=== PATIENT | female | born 1940 | race Two or more races ===

== ENCOUNTER 2020-11-06 09:12 | Emergency (ER) | payer OTHER, MEDICARE ==
[~2020-11-06] VITALS: Ht 154.9 cm; Wt 59.4 kg
[2020-11-06 10:00] LABS: Basophils # (auto) 0 10 ^3/uL (0-0.2); Basophils % (auto) 0.4 % (0.0-2.0); Eosinophils # (auto) 0 10 ^3/uL (0-0.8); Hematocrit 35.6 % (36.0-46.0); Hemoglobin 12.3 g/dL (12.2-16.2); Lymphocytes # (auto) 0.5 10 ^3/uL (0.4-5.4); Lymphocytes % (auto) 11.6 % (10.0-50.0); Mean Corpuscular Hemoglobin 30.3 pg (28.0-32.0); Mean Corpuscular Hgb Conc. 34.6 g/dL (32.0-36.0); Mean Corpuscular Volume 87.6 fL (80.0-100.0); Monocytes # (auto) 0.3 10 ^3/uL (0-1.3); Monocytes % (auto) 7.4 % (0.0-12.0); Neutrophils # (auto) 3.5 10 ^3/uL (1.6-8.6); Neutrophils % (auto) 80.6 % (37.0-80.0); Nucleated Red Blood Cells % 0.5 %; Red Blood Cells 4.06 10^6/uL (4.0-5.20); Red Cell Distribution Width 13.9 % (11.8-14.3); White Blood Cell 4.4 10^3/uL (4.4-10.8)
[2020-11-06 10:26] LABS: Albumin 3.8 g/dL (3.4-5.0); Anion Gap 8 (5-15); Blood Urea Nitrogen 29 mg/dL (7-18); Calcium 9.6 mg/dL (8.5-10.1); Carbon Dioxide 25 mmol/L (21-32); Chloride 107 mmol/L (98-107); Glucose 104 mg/dL (74-106); Magnesium 2.6 mg/dL (1.6-2.6); Potassium 3.9 mmol/L (3.5-5.1); Sodium 140 mmol/L (136-145)
[2020-11-06 10:32] LABS: Alanine Aminotransferase 25 U/L (13-56); Alkaline Phosphatase 56 U/L (45-117); Aspartate Aminotransferase 10 U/L (15-37); BUN/Creatinine Ratio 27.4; Bilirubin, Total 0.8 mg/dL (0.2-1.0); GFR African American 64 mL/min; GFR Non-African American 53 mL/min; Total Protein 7.9 g/dL (6.4-8.2)
[2020-11-06] MEDS ORDERED: MECLIZINE HCL 25 MG TAB PO ONE (11:15)
[2020-11-06] MEDS: FUROSEMIDE 20 MG/2 ML VIAL IV ONE ×2 (11:15→13:13)
[2020-11-06 12:00] LABS: Urine Bacteria FEW /hpf (None Seen); Urine Blood Negative /uL (Negative); Urine Specific Gravity 1.009 (1.001-1.035); Urine WBC 2 /hpf (0 - 5)
[2020-11-06] MEDS ORDERED: FUROSEMIDE 20 MG TAB ONE (13:09)
[2020-11-06 15:52] VITALS: BP 153/88
== END 2020-11-06 15:54 | disposition home or self-care (01) ==
LOC: ER 09:12
DX: R42 Dizziness and giddiness (principal); R53.1 Weakness; I25.2 Old myocardial infarction; I10 Essential (primary) hypertension; Z90.49 Acquired absence of other specified parts of digestive tract
CPT/HCPCS: 36415; 70450; 71045; 80053; 81001; 83735; 84484; 85025; 93005; 99285; J8597

== ENCOUNTER 2020-12-11 21:37 | Inpatient (IN) | payer MEDICARE, OTHER ==
[~2020-12-11] VITALS: Ht 157.5 cm; Wt 63.6 kg
[2020-12-11 22:29] LABS: Basophils # (auto) 0 10 ^3/uL (0-0.2); Basophils % (auto) 0.2 % (0.0-2.0); Eosinophils # (auto) 0 10 ^3/uL (0-0.8); Hemoglobin 12.1 g/dL (12.2-16.2); Lymphocytes # (auto) 0.6 10 ^3/uL (0.4-5.4); Lymphocytes % (auto) 5.7 % (10.0-50.0); Mean Corpuscular Hemoglobin 30.3 pg (28.0-32.0); Mean Corpuscular Hgb Conc. 34.7 g/dL (32.0-36.0); Mean Corpuscular Volume 87.3 fL (80.0-100.0); Monocytes # (auto) 0.5 10 ^3/uL (0-1.3); Monocytes % (auto) 4.8 % (0.0-12.0); Neutrophils # (auto) 10.1 10 ^3/uL (1.6-8.6); Neutrophils % (auto) 89.3 % (37.0-80.0); Red Cell Distribution Width 13.5 % (11.8-14.3); White Blood Cell 11.3 10^3/uL (4.4-10.8)
[2020-12-11 22:48] LABS: Albumin 3.6 g/dL (3.4-5.0); Anion Gap 9 (5-15); Blood Urea Nitrogen 33 mg/dL (7-18); Calcium 8.9 mg/dL (8.5-10.1); Carbon Dioxide 22 mmol/L (21-32); Chloride 96 mmol/L (98-107); Glucose 144 mg/dL (74-106); Potassium 3.7 mmol/L (3.5-5.1); Sodium 127 mmol/L (136-145)
[2020-12-11 22:55] LABS: Alanine Aminotransferase 36 U/L (13-56); Alkaline Phosphatase 65 U/L (45-117); Aspartate Aminotransferase 22 U/L (15-37); BUN/Creatinine Ratio 28.2; GFR African American 58 mL/min; GFR Non-African American 48 mL/min; Total Protein 7.6 g/dL (6.4-8.2)
[2020-12-12] MEDS ORDERED: SODIUM CHLORIDE 0.9% 1,000 ML IV ONE (03:30)
[2020-12-12 05:28] LABS: Sodium Urine 35 mmol/L (40-220)
[2020-12-12 05:38] LABS: Creatinine, Urine 10 mg/dL (30.0-125.0)
[2020-12-12] MEDS ORDERED: POTASSIUM CHL 20 Meq TABLET PO ONE ×2 (06:15→06:30)
[2020-12-12] MEDS ORDERED: ONDANSETRON HCL 4 MG/2 ML VIAL IV PRN (06:15)
[2020-12-12] MEDS ORDERED: ACETAMINOPHEN 325 MG TAB PO PRN (06:15)
[2020-12-12] MEDS ORDERED: TEMAZEPAM 15 MG CAP PO PRN (06:15)
[2020-12-12] MEDS ORDERED: PANTOPRAZOLE 40 MG TAB PO SCH (10:00)
[2020-12-12] MEDS ORDERED: FUROSEMIDE 20 MG TAB PO SCH (10:00)
[2020-12-12] MEDS: RASAGILINE 1 MG PO SCH (10:00)
[2020-12-12] MEDS: PROPRANOLOL HCL 20 MG TAB PO SCH ×2 (11:23→22:00)
[2020-12-12] MEDS: dilTIAZem 120MG ER CAP PO SCH (11:24)
[2020-12-12] MEDS: LISINOPRIL 5 MG TAB PO SCH (11:24)
[2020-12-12] MEDS ORDERED: POM PO ×2 (11:54)
[2020-12-12] MEDS ORDERED: MEMA28CA15 PO ×2 (11:54)
[2020-12-12] MEDS ORDERED: LISI-706 PO ×2 (11:54)
[2020-12-12] MEDS ORDERED: DILT-29 PO ×2 (11:54)
[2020-12-12] MEDS ORDERED: CHOL20007 OR ×2 (11:54)
[2020-12-12] MEDS ORDERED: AMAN100T PO ×2 (11:54)
[2020-12-12] MEDS ORDERED: TETR1TAB2 PO ×2 (11:54)
[2020-12-12] MEDS ORDERED: POM IJ ×2 (11:54)
[2020-12-12] MEDS ORDERED: ROPI1TAB4 PO ×2 (11:54)
[2020-12-12] MEDS ORDERED: CHOL100046 PO ×2 (11:54)
[2020-12-12] MEDS ORDERED: OMEP20TA PO ×2 (11:54)
[2020-12-12] MEDS ORDERED: RASA1TAB4 PO ×4 (11:54)
[2020-12-12] MEDS ORDERED: TRAZ-181 PO ×2 (11:54)
[2020-12-12] MEDS ORDERED: QUET200T4 PO ×2 (11:54)
[2020-12-12 12:38] VITALS: BP 150/92
[2020-12-12 13:00] VITALS: BP 150/92
[2020-12-12] MEDS: AMANTADINE HCL 100 MG CAP PO SCH ×2 (14:02→23:13)
[2020-12-12] MEDS ORDERED: PNEUMOCOCCAL VACC POLYS 25 MCG/0.5 ML VIAL IM ONE (14:30)
[2020-12-12] MEDS ORDERED: INFLUENZA QUAD 2021-2022 0.5 ML SYRG IM ONE (14:30)
[2020-12-12 17:00] VITALS: BP 112/62
[2020-12-12] MEDS ORDERED: MEMANTINE 28 MG PO SCH (22:00)
[2020-12-12 22:25] VITALS: BP 106/74
[2020-12-12] MEDS: ATORVASTATIN 20 MG TAB PO SCH (23:12)
[2020-12-12] MEDS: QUEtiapine FUMARATE 100 MG TAB PO SCH (23:13)
[2020-12-13 05:25] VITALS: BP 100/45
[2020-12-13 06:58] LABS: Basophils # (auto) 0 10 ^3/uL (0-0.2); Basophils % (auto) 0.1 % (0.0-2.0); Eosinophils # (auto) 0 10 ^3/uL (0-0.8); Hematocrit 33.9 % (36.0-46.0); Hemoglobin 11.7 g/dL (12.2-16.2); Lymphocytes # (auto) 0.8 10 ^3/uL (0.4-5.4); Mean Corpuscular Hemoglobin 30.7 pg (28.0-32.0); Mean Corpuscular Hgb Conc. 34.5 g/dL (32.0-36.0); Mean Corpuscular Volume 88.9 fL (80.0-100.0); Monocytes # (auto) 0.6 10 ^3/uL (0-1.3); Monocytes % (auto) 8.4 % (0.0-12.0); Neutrophils # (auto) 5.6 10 ^3/uL (1.6-8.6); Neutrophils % (auto) 80.5 % (37.0-80.0); Nucleated Red Blood Cells % 0.1 %; Red Blood Cells 3.81 10^6/uL (4.0-5.20); Red Cell Distribution Width 13.8 % (11.8-14.3)
[2020-12-13 07:13] LABS: BUN/Creatinine Ratio 24.8; Calcium 9.2 mg/dL (8.5-10.1); Potassium 3.5 mmol/L (3.5-5.1)
[2020-12-13 09:00] VITALS: BP 88/50
[2020-12-13] MEDS: LISINOPRIL 5 MG TAB PO SCH (10:00)
[2020-12-13] MEDS: RASAGILINE 1 MG PO SCH (10:00)
[2020-12-13] MEDS: PROPRANOLOL HCL 20 MG TAB PO SCH ×2 (10:00→22:15)
[2020-12-13] MEDS: dilTIAZem 120MG ER CAP PO SCH (10:00)
[2020-12-13] MEDS: AMANTADINE HCL 100 MG CAP PO SCH ×2 (10:06→22:14)
[2020-12-13 13:00] VITALS: BP 82/44
[2020-12-13 17:00] VITALS: BP 108/64
[2020-12-13 22:00] VITALS: BP 124/73
[2020-12-13] MEDS ORDERED: MEMANTINE 28 MG PO SCH (22:00)
[2020-12-13] MEDS: QUEtiapine FUMARATE 100 MG TAB PO SCH (22:14)
[2020-12-13] MEDS: ATORVASTATIN 20 MG TAB PO SCH (22:16)
[2020-12-14 04:47] VITALS: BP 92/54
[2020-12-14 08:35] VITALS: BP 92/90
[2020-12-14] MEDS ORDERED: SODIUM CHLORIDE 0.9% 1,000 ML IV SCH (09:30)
[2020-12-14] MEDS: AMANTADINE HCL 100 MG CAP PO SCH (10:00)
[2020-12-14] MEDS: RASAGILINE 1 MG PO SCH (10:00)
[2020-12-14] MEDS: dilTIAZem 120MG ER CAP PO SCH (10:00)
[2020-12-14] MEDS: PROPRANOLOL HCL 20 MG TAB PO SCH (10:00)
[2020-12-14 13:00] VITALS: BP 111/67
[2020-12-14] MEDS ORDERED: INFLUENZA QUAD 2021-2022 0.5 ML SYRG IM ONE (14:35)
== END 2020-12-14 15:40 | disposition home health service (06) | DRG 92 ==
LOC: ER 21:40 → OVERFLOW 12-12 06:10 → CENTRAL 12-12 10:00
PROVIDERS: ADMIT Nurse Practitioner; ATTEND Internal Medicine
DX: G25.0 Essential tremor (principal); N17.9 Acute kidney failure, unspecified; E87.1 Hypo-osmolality and hyponatremia; I95.9 Hypotension, unspecified; R06.02 Shortness of breath; D72.829 Elevated white blood cell count, unspecified; F02.80 Dementia in other diseases classified elsewhere, unspecified severity, without behavioral disturbance, psychotic disturbance, mood disturbance, and anxiety; I10 Essential (primary) hypertension; F51.04 Psychophysiologic insomnia; Z20.822 Contact with and (suspected) exposure to COVID-19; G30.9 Alzheimer's disease, unspecified; Z82.49 Family history of ischemic heart disease and other diseases of the circulatory system; Z90.49 Acquired absence of other specified parts of digestive tract
CPT/HCPCS: 36415; 70450; 71045; 76700; 78582; 80048; 80051; 80053; 82570; 83880; 83935; 84300; 84484; 85025; 85379; 87081; 87426; 90686; 93005; 96360; 97116; 97530; G0378

== ENCOUNTER 2020-12-16 23:35 | Emergency (ER) | payer OTHER ==
[~2020-12-16] VITALS: Ht 157.5 cm; Wt 65.8 kg
[~2020-12-16 23:35] MED LIST: AMAN100T PO; CHOL100046 PO; CHOL20007 OR; DILT-29 PO; LISI-706 PO; MEMA28CA15 PO; OMEP20TA PO; POM IJ; POM PO; QUET200T4 PO; RASA1TAB4 PO; ROPI1TAB4 PO; TETR1TAB2 PO; TRAZ-181 PO
[2020-12-17 00:20] LABS: Basophils # (auto) 0 10 ^3/uL (0-0.2); Basophils % (auto) 0.3 % (0.0-2.0); Eosinophils # (auto) 0 10 ^3/uL (0-0.8); Hematocrit 32.6 % (36.0-46.0); Hemoglobin 11.6 g/dL (12.2-16.2); Lymphocytes # (auto) 0.8 10 ^3/uL (0.4-5.4); Lymphocytes % (auto) 17.7 % (10.0-50.0); Mean Corpuscular Hemoglobin 31.5 pg (28.0-32.0); Mean Corpuscular Hgb Conc. 35.5 g/dL (32.0-36.0); Mean Corpuscular Volume 88.9 fL (80.0-100.0); Monocytes # (auto) 0.5 10 ^3/uL (0-1.3); Monocytes % (auto) 11.3 % (0.0-12.0); Neutrophils # (auto) 3.1 10 ^3/uL (1.6-8.6); Neutrophils % (auto) 70.7 % (37.0-80.0); Nucleated Red Blood Cells % 0.1 %; Red Blood Cells 3.67 10^6/uL (4.0-5.20); Red Cell Distribution Width 13.5 % (11.8-14.3); White Blood Cell 4.4 10^3/uL (4.4-10.8)
[2020-12-17 00:32] LABS: Alanine Aminotransferase 25 U/L (13-56); Albumin 3.1 g/dL (3.4-5.0); Anion Gap 13 (5-15); Aspartate Aminotransferase 14 U/L (15-37); BUN/Creatinine Ratio 32.8; Blood Urea Nitrogen 44 mg/dL (7-18); Calcium 8.9 mg/dL (8.5-10.1); Carbon Dioxide 23 mmol/L (21-32); Chloride 108 mmol/L (98-107); GFR African American 49 mL/min; GFR Non-African American 41 mL/min; Glucose 119 mg/dL (74-106); Potassium 3.7 mmol/L (3.5-5.1); Sodium 144 mmol/L (136-145)
[2020-12-17 00:36] LABS: Alkaline Phosphatase 62 U/L (45-117); Bilirubin, Total 0.6 mg/dL (0.2-1.0); Total Protein 7.4 g/dL (6.4-8.2)
[2020-12-17 09:14] LABS: Urine Bacteria NONE SEEN /hpf (None Seen); Urine Blood Negative /uL (Negative); Urine Mucus FEW (None Seen); Urine Specific Gravity 1.014 (1.001-1.035); Urine WBC 11 /hpf (0 - 5)
[2020-12-17 11:50] VITALS: BP 134/66
== END 2020-12-17 12:45 | disposition home or self-care (01) ==
LOC: ER 23:35
DX: R06.02 Shortness of breath (principal); R53.83 Other fatigue; N39.0 Urinary tract infection, site not specified; I10 Essential (primary) hypertension; Z90.49 Acquired absence of other specified parts of digestive tract; Z20.822 Contact with and (suspected) exposure to COVID-19
CPT/HCPCS: 36415; 71045; 80053; 81001; 83880; 84484; 85025; 87426; 93005; 99285; J7030

== ENCOUNTER 2021-01-28 15:34 | Inpatient (IN) | payer OTHER ==
[~2021-01-28] VITALS: Ht 157.5 cm; Wt 58.3 kg
[2021-01-28 16:44] LABS: Basophils # (auto) 0 10 ^3/uL (0-0.2); Basophils % (auto) 0.1 % (0.0-2.0); Eosinophils # (auto) 0 10 ^3/uL (0-0.8); Hematocrit 35.8 % (36.0-46.0); Hemoglobin 12.5 g/dL (12.2-16.2); Lymphocytes # (auto) 0.5 10 ^3/uL (0.4-5.4); Lymphocytes % (auto) 6.2 % (10.0-50.0); Mean Corpuscular Hemoglobin 30.2 pg (28.0-32.0); Mean Corpuscular Volume 86.3 fL (80.0-100.0); Monocytes # (auto) 0.5 10 ^3/uL (0-1.3); Monocytes % (auto) 6.7 % (0.0-12.0); Neutrophils # (auto) 6.6 10 ^3/uL (1.6-8.6); Red Blood Cells 4.15 10^6/uL (4.0-5.20); Red Cell Distribution Width 13.6 % (11.8-14.3); White Blood Cell 7.6 10^3/uL (4.4-10.8)
[2021-01-28 17:00] LABS: Albumin 3.8 g/dL (3.4-5.0); Calcium 9.7 mg/dL (8.5-10.1)
[2021-01-28 17:05] LABS: Bilirubin, Total 0.8 mg/dL (0.2-1.0)
[2021-01-28] MEDS ORDERED: LORazepam 2MG/ML-1ML VIAL IV ONE (17:15)
[2021-01-28] MEDS ORDERED: SODIUM CHLORIDE 0.9% 1,000 ML IV ONE (17:15)
[2021-01-28] MEDS ORDERED: SODIUM CHLORIDE 0.9% 1,000 ML IVB ONE (17:15)
[2021-01-28 18:32] LABS: Urine Bacteria FEW /hpf (None Seen); Urine Blood Negative /uL (Negative); Urine Specific Gravity 1.007 (1.001-1.035); Urine WBC 1 /hpf (0 - 5)
[2021-01-29] MEDS ORDERED: ACETAMINOPHEN 325 MG TAB PO PRN (00:15)
[2021-01-29] MEDS ORDERED: TEMAZEPAM 15 MG CAP PO PRN (00:15)
[2021-01-29] MEDS ORDERED: ONDANSETRON HCL 4 MG/2 ML VIAL IV PRN (00:15)
[2021-01-29] MEDS ORDERED: hydrALAZINE HCL 20 MG/ML VL IV PRN (00:15)
[2021-01-29] MEDS ORDERED: DOCUSATE SOD 100 MG CAP PO PRN (00:15)
[2021-01-29] MEDS: SODIUM CHLORIDE 0.9% 1,000 ML IV SCH ×2 (00:15→17:15)
[2021-01-29] MEDS ORDERED: MORPHINE SULFATE INJECTION 2 MG/ML SYRG IV PRN (01:45)
[2021-01-29] MEDS ORDERED: NITROGLYCERIN 0.4 MG SL TAB SL PRN (01:45)
[2021-01-29] MEDS: LORazepam 2MG/ML-1ML VIAL IV PRN ×2 (02:14→15:53)
[2021-01-29 10:54] LABS: Albumin 3.6 g/dL (3.4-5.0); Calcium 9.1 mg/dL (8.5-10.1); Potassium 3.4 mmol/L (3.5-5.1)
[2021-01-29 10:57] LABS: Basophils # (auto) 0 10 ^3/uL (0-0.2); Basophils % (auto) 0.1 % (0.0-2.0); Eosinophils # (auto) 0 10 ^3/uL (0-0.8); Hematocrit 35.8 % (36.0-46.0); Hemoglobin 12.4 g/dL (12.2-16.2); Lymphocytes # (auto) 0.6 10 ^3/uL (0.4-5.4); Lymphocytes % (auto) 9.6 % (10.0-50.0); Mean Corpuscular Hemoglobin 31.1 pg (28.0-32.0); Mean Corpuscular Hgb Conc. 34.6 g/dL (32.0-36.0); Mean Corpuscular Volume 89.8 fL (80.0-100.0); Monocytes # (auto) 0.5 10 ^3/uL (0-1.3); Monocytes % (auto) 7.2 % (0.0-12.0); Neutrophils # (auto) 5.4 10 ^3/uL (1.6-8.6); Neutrophils % (auto) 83.1 % (37.0-80.0); Nucleated Red Blood Cells % 0.2 %; Red Blood Cells 3.99 10^6/uL (4.0-5.20); Red Cell Distribution Width 13.6 % (11.8-14.3); White Blood Cell 6.4 10^3/uL (4.4-10.8)
[2021-01-29 10:59] LABS: BUN/Creatinine Ratio 20.2; Total Protein 7.2 g/dL (6.4-8.2)
[2021-01-29] MEDS: FAMOTIDINE (10MG/ML) 2ML VL IV SCH (11:37)
[2021-01-29] MEDS: ZINC SULFATE 220mg CAP or TAB PO SCH (11:37)
[2021-01-29] MEDS: ASPirin 81 mg TAB PO SCH (11:37)
[2021-01-29] MEDS: MEMANTINE HCL 5 MG TAB PO SCH (11:37)
[2021-01-29] MEDS: MULTIPLE VITAMIN TAB PO SCH (11:37)
[2021-01-29] MEDS: ASCORBIC ACID 500 MG TAB PO SCH ×2 (11:38→22:01)
[2021-01-29] MEDS: QUEtiapine FUMARATE 100 MG TAB PO SCH (22:00)
[2021-01-30] MEDS: HYDROcodone-ACET 5/325MG TAB PO PRN ×2 (03:36→20:06)
[2021-01-30] MEDS: SODIUM CHLORIDE 0.9% 1,000 ML IV SCH (03:40)
[2021-01-30] MEDS ORDERED: ROSU20TA14 PO (04:44)
[2021-01-30] MEDS ORDERED: VALB40CA2 PO (04:44)
[2021-01-30] MEDS ORDERED: ALPR0.25 PO (04:45)
[2021-01-30 05:00] VITALS: BP 115/49
[2021-01-30 06:43] LABS: Basophils # (auto) 0 10 ^3/uL (0-0.2); Basophils % (auto) 0.2 % (0.0-2.0); Eosinophils # (auto) 0 10 ^3/uL (0-0.8); Eosinophils % (auto) 0.1 % (0.0-7.0); Hematocrit 34.2 % (36.0-46.0); Hemoglobin 11.9 g/dL (12.2-16.2); Lymphocytes # (auto) 0.7 10 ^3/uL (0.4-5.4); Lymphocytes % (auto) 14.9 % (10.0-50.0); Mean Corpuscular Hemoglobin 31.4 pg (28.0-32.0); Mean Corpuscular Hgb Conc. 34.8 g/dL (32.0-36.0); Mean Corpuscular Volume 90.3 fL (80.0-100.0); Monocytes # (auto) 0.5 10 ^3/uL (0-1.3); Monocytes % (auto) 9.7 % (0.0-12.0); Neutrophils # (auto) 3.6 10 ^3/uL (1.6-8.6); Neutrophils % (auto) 75.1 % (37.0-80.0); Nucleated Red Blood Cells % 0.2 %; Red Blood Cells 3.78 10^6/uL (4.0-5.20); Red Cell Distribution Width 14.2 % (11.8-14.3); White Blood Cell 4.8 10^3/uL (4.4-10.8)
[2021-01-30 06:54] LABS: Potassium 3.6 mmol/L (3.5-5.1)
[2021-01-30 07:04] LABS: Albumin 3.4 g/dL (3.4-5.0); BUN/Creatinine Ratio 20.9; Total Protein 6.6 g/dL (6.4-8.2)
[2021-01-30 09:00] VITALS: BP 143/69
[2021-01-30] MEDS: FAMOTIDINE (10MG/ML) 2ML VL IV SCH (10:06)
[2021-01-30] MEDS: ASPirin 81 mg TAB PO SCH (10:06)
[2021-01-30] MEDS: ASCORBIC ACID 500 MG TAB PO SCH ×2 (10:07→20:05)
[2021-01-30] MEDS: ZINC SULFATE 220mg CAP or TAB PO SCH (10:07)
[2021-01-30] MEDS: MEMANTINE HCL 5 MG TAB PO SCH (10:07)
[2021-01-30] MEDS: MULTIPLE VITAMIN TAB PO SCH (10:07)
[2021-01-30] MEDS ORDERED: MAGNESIUM SULFATE 1GM/100ML 100 ML IV ONE (10:15)
[2021-01-30] MEDS ORDERED: POTASSIUM CHL 20 Meq TABLET PO ONE (10:15)
[2021-01-30] MEDS ORDERED: ENOXAPARIN SOD 60 MG/0.6 ML SYRINGE SC ONE (10:45)
[2021-01-30] MEDS ORDERED: IOHEXOL 350 MG/ML 100ML IJ ONE (12:57)
[2021-01-30 13:00] VITALS: BP 149/80
[2021-01-30 17:00] VITALS: BP 142/92
[2021-01-30] MEDS: ENOXAPARIN SOD 60 MG/0.6 ML SYRINGE SC SCH (20:05)
[2021-01-30] MEDS: QUEtiapine FUMARATE 100 MG TAB PO SCH (20:05)
[2021-01-30 22:00] VITALS: BP 141/71
[2021-01-30] MEDS: LORazepam 2MG/ML-1ML VIAL IV PRN (23:41)
[2021-01-31] VITALS (7 sets, daily range): BP systolic 133–164; BP diastolic 59–80
[2021-01-31] MEDS: SODIUM CHLORIDE 0.9% 1,000 ML IV SCH ×2 (02:51→18:55)
[2021-01-31] MEDS: LORazepam 2MG/ML-1ML VIAL IV PRN ×2 (07:58→17:08)
[2021-01-31] MEDS: ASPirin 81 mg TAB PO SCH (08:46)
[2021-01-31] MEDS: FAMOTIDINE (10MG/ML) 2ML VL IV SCH (08:46)
[2021-01-31] MEDS: MULTIPLE VITAMIN TAB PO SCH (08:47)
[2021-01-31] MEDS: ASCORBIC ACID 500 MG TAB PO SCH ×2 (08:47→21:20)
[2021-01-31] MEDS: ZINC SULFATE 220mg CAP or TAB PO SCH (08:47)
[2021-01-31] MEDS: MEMANTINE HCL 5 MG TAB PO SCH (08:47)
[2021-01-31] MEDS: ENOXAPARIN SOD 60 MG/0.6 ML SYRINGE SC SCH (08:48)
[2021-01-31] MEDS ORDERED: APOMINJ SC (09:32)
[2021-01-31] MEDS ORDERED: ALPRAZolam 0.25 MG TAB PO PRN (10:45)
[2021-01-31] MEDS ORDERED: FUROSEMIDE 20 MG/2 ML VIAL IV ONE (10:45)
[2021-01-31] MEDS ORDERED: dilTIAZem 120MG ER CAP PO ONE (10:45)
[2021-01-31] MEDS ORDERED: LISINOPRIL 20 MG TAB PO ONE (10:45)
[2021-01-31] MEDS ORDERED: PROPRANOLOL HCL 20 MG TAB PO ONE (10:45)
[2021-01-31] MEDS: ROPINIROLE 1 MG PO SCH ×2 (12:43→18:10)
[2021-01-31] MEDS: APOKYN PO SCH ×2 (12:53→19:24)
[2021-01-31] MEDS ORDERED: APOKYN PO SCH (14:00)
[2021-01-31] MEDS ORDERED: PATIENTS OWN MEDICATION PO SCH (14:00)
[2021-01-31] MEDS: FUROSEMIDE 20 MG/2 ML VIAL IV SCH (18:10)
[2021-01-31] MEDS: APIXABAN 2.5 MG TAB PO SCH (21:20)
[2021-01-31] MEDS: QUEtiapine FUMARATE 100 MG TAB PO SCH (21:20)
[2021-01-31] MEDS: PROPRANOLOL HCL 20 MG TAB PO SCH (21:22)
[2021-01-31] MEDS ORDERED: HALOPERIDOL LACTATE 5 MG/ML INJ VIAL IM PRN (21:30)
[2021-01-31] MEDS: ATORVASTATIN 20 MG TAB PO SCH (22:38)
[2021-01-31 22:53] LABS: Folate (Folic Acid) > 24.00 ng/mL (5.38-24)
[2021-02-01 05:00] VITALS: BP 112/58
[2021-02-01] MEDS: FUROSEMIDE 20 MG/2 ML VIAL IV SCH ×2 (06:08→17:40)
[2021-02-01] MEDS: APOKYN PO SCH ×3 (07:00→20:00)
[2021-02-01 07:12] LABS: Cholesterol 140 mg/dL (< 200); LDL Cholesterol 82 mg/dL (< 100); Triglycerides 105 mg/dL (< 150)
[2021-02-01 09:08] VITALS: BP 118/61
[2021-02-01] MEDS: FAMOTIDINE (10MG/ML) 2ML VL IV SCH (09:48)
[2021-02-01] MEDS: ZINC SULFATE 220mg CAP or TAB PO SCH (09:49)
[2021-02-01] MEDS: ASPirin 81 mg TAB PO SCH (09:49)
[2021-02-01] MEDS: PROPRANOLOL HCL 20 MG TAB PO SCH (09:50)
[2021-02-01] MEDS: APIXABAN 2.5 MG TAB PO SCH ×2 (09:50→22:25)
[2021-02-01] MEDS: dilTIAZem 120MG ER CAP PO SCH (09:50)
[2021-02-01] MEDS: ASCORBIC ACID 500 MG TAB PO SCH ×2 (09:51→22:25)
[2021-02-01] MEDS: MULTIPLE VITAMIN TAB PO SCH (09:51)
[2021-02-01] MEDS: LISINOPRIL 20 MG TAB PO SCH (09:51)
[2021-02-01 10:00] LABS: HDL Cholesterol 46 mg/dL (40-59)
[2021-02-01] MEDS: SODIUM CHLORIDE 0.9% 1,000 ML IV SCH (11:35)
[2021-02-01 12:50] VITALS: BP 110/54
[2021-02-01 17:04] VITALS: BP 108/48
[2021-02-01 20:00] VITALS: BP 119/50
[2021-02-01 22:00] VITALS: BP 119/50
[2021-02-01] MEDS ORDERED: SENNA 8.6 MG TAB PO SCH (22:00)
[2021-02-01] MEDS: QUEtiapine FUMARATE 100 MG TAB PO SCH (22:25)
[2021-02-01] MEDS: DOCUSATE SOD 100 MG CAP PO SCH (22:25)
[2021-02-01] MEDS: ATORVASTATIN 20 MG TAB PO SCH (22:26)
[2021-02-02] MEDS: SODIUM CHLORIDE 0.9% 1,000 ML IV SCH (01:00)
[2021-02-02 05:00] VITALS: BP 117/57
[2021-02-02] MEDS: FUROSEMIDE 20 MG/2 ML VIAL IV SCH (05:56)
[2021-02-02] MEDS: APOKYN PO SCH ×2 (06:34→12:00)
[2021-02-02 08:23] VITALS: BP 119/50
[2021-02-02 09:09] VITALS: BP 106/59
[2021-02-02] MEDS ORDERED: POLYETHYLENE GLYCOL 17 GM PWDR PO SCH (10:00)
[2021-02-02] MEDS: DOCUSATE SOD 100 MG CAP PO SCH (10:02)
[2021-02-02] MEDS: FAMOTIDINE (10MG/ML) 2ML VL IV SCH (10:02)
[2021-02-02] MEDS: ASCORBIC ACID 500 MG TAB PO SCH (10:03)
[2021-02-02] MEDS: MULTIPLE VITAMIN TAB PO SCH (10:03)
[2021-02-02] MEDS: dilTIAZem 120MG ER CAP PO SCH (10:03)
[2021-02-02] MEDS: APIXABAN 2.5 MG TAB PO SCH (10:03)
[2021-02-02] MEDS: ZINC SULFATE 220mg CAP or TAB PO SCH (10:03)
[2021-02-02] MEDS: LISINOPRIL 20 MG TAB PO SCH (10:04)
[2021-02-02] MEDS: ASPirin 81 mg TAB PO SCH (10:04)
[2021-02-02 12:53] VITALS: BP 122/57
[2021-02-02 13:08] VITALS: BP 122/57
== END 2021-02-02 15:30 | disposition home health service (06) | DRG 280 ==
LOC: ER 15:34 → TELE 01-29 01:37 → TELE-WESTW 01-30 00:20
PROVIDERS: ADMIT Nurse Practitioner Family; ATTEND Internal Medicine
DX: I48.0 Paroxysmal atrial fibrillation (principal); I50.33 Acute on chronic diastolic (congestive) heart failure; I21.A1 Myocardial infarction type 2; N17.9 Acute kidney failure, unspecified; I13.0 Hypertensive heart and chronic kidney disease with heart failure and stage 1 through stage 4 chronic kidney disease, or unspecified chronic kidney disease; I48.3 Typical atrial flutter; G20 Parkinson's disease; E87.6 Hypokalemia; N18.31 Chronic kidney disease, stage 3a; I71.2 Thoracic aortic aneurysm, without rupture; Z20.822 Contact with and (suspected) exposure to COVID-19; D18.00 Hemangioma unspecified site; E78.5 Hyperlipidemia, unspecified; F41.9 Anxiety disorder, unspecified; F51.04 Psychophysiologic insomnia; G30.9 Alzheimer's disease, unspecified; Z79.899 Other long term (current) drug therapy; Z82.49 Family history of ischemic heart disease and other diseases of the circulatory system; Z83.3 Family history of diabetes mellitus; Z86.73 Personal history of transient ischemic attack (TIA), and cerebral infarction without residual deficits; Z90.49 Acquired absence of other specified parts of digestive tract
CPT/HCPCS: 36415; 70450; 71046; 71275; 80053; 80061; 81001; 82607; 82746; 83036; 83735; 83880; 84443; 84484; 85025; 85379; 87426; 93005; 93306; 93886; 96361; 96374; 96375; 97110; 97163; 97530; G0378; J3490